=== PATIENT | female | born 1990 | race Caucasian/White ===

== ENCOUNTER → 2018-01-26 | Day surgery (SDC) | payer OTHER ==
[~2018-01-26] VITALS: Ht 167.6 cm; Wt 95.7 kg
--- NOTE | 2018-01-26 13:36 | Operative Report ---
Operative/Inv Procedure Report Surgery Date: 01/26/18 Name of Procedure: Left knee arthroscopy, partial medial meniscectomy, partial lateral meniscectomy Pre-Operative Diagnosis: Left knee medial meniscus tear Post-Operative Diagnosis: Left knee medial meniscus tear, discoid lateral meniscus Estimated Blood Loss: scant Surgeon/Solution Engineer: Khalif Laguna MD Anesthesia: laryngeal mask airway, block Complications: None Condition: Stable to PACU Operative Indication: This is a 28-year-old female with right knee pain after fall. MRI showed a meniscus tear. Risks and benefits of the procedure were discussed with the patient at length. Risks include but are not limited to nerve damage, muscle damage, infection, blood loss, blood clots, pulmonary embolus, and even . The patient agreed to the above risks and elected to proceed with surgery. Operative/Procedure Note Note: The patient was placed supine on the operating room table. A tourniquet was applied. The lower extremity was prepped and draped in normal sterile fashion. A timeout was performed before the incision. The site marking was visualized before incision. After the leg was prepped and draped, an Esmarch was used to exsanguinate the extremity. The tourniquet was inflated. A standard inferolateral portal was established with an 11 blade. The camera was inserted. A medial portal was established with a spinal needle and an 11 blade. The diagnostic arthroscopy was then performed which showed the above findings. A straight biter was used to debride the root and posterior horn of the medial meniscus. A shaver was used to further complete the debridement. Chondroplasty of the medial femoral condyle was then performed. A friable discoid lateral meniscus was then encountered. Straight biter was used to saucerize the lateral meniscus. The shaver was used to complete the debridement. The knee was copiously irrigated. The portal sites were closed with 3-0 nylon suture in a simple interrupted fashion. The knee was injected with 10 mL of 0.25% Marcaine with epinephrine. A dry sterile dressing was applied and the patient was transferred to PACU in stable condition. Findings: Complex tear of the posterior horn extending through the root of the medial meniscus. Grade 3 chondral changes over the medial femoral condyle. Grade 1 chondral changes over the medial tibial plateau. ACL intact. PCL intact. Lateral compartment articular cartilage with grade 1 chondral softening. Discoid meniscus laterally. Patellofemoral joint articular cartilage intact. No loose bodies noted.
== END ==
LOC: STS 01:44
DX: S83.242A Other tear of medial meniscus, current injury, left knee, initial encounter (principal); S83.282A Other tear of lateral meniscus, current injury, left knee, initial encounter; W19.XXXA Unspecified fall, initial encounter; G93.2 Benign intracranial hypertension; J45.909 Unspecified asthma, uncomplicated; E66.01 Morbid (severe) obesity due to excess calories; Z68.41 Body mass index [BMI] 40.0-44.9, adult
CPT/HCPCS: 81025; J0131; J0690; J2250